=== PATIENT | female | born 1940 | race Caucasian/White ===

== ENCOUNTER 2025-02-25 12:13 | Inpatient (IN) | payer MEDICARE, OTHER ==
[~2025-02-25] VITALS: Ht 165.1 cm; Wt 72.3 kg
[2025-02-25] MEDS ORDERED: ACETAMINOPHEN ES 500 MG TABLET ONE (13:17)
[2025-02-25] MEDS: ACETAMINOPHEN ES 500 MG TABLET PO ONE (13:23)
[2025-02-25] MEDS ORDERED: MORPHINE SULFATE INJ 2 MG/ML DISP.SYRIN ONE (13:58)
[2025-02-25] MEDS: MORPHINE SULFATE INJ 2 MG/ML DISP.SYRIN IV ONE ×2 (14:01→16:04)
[2025-02-25] MEDS ORDERED: PROPOFOL 20 ML IV ONE (14:48)
[2025-02-25] MEDS ORDERED: RASA1TAB4 PO (14:57)
[2025-02-25] MEDS ORDERED: LEVO75TA99 PO (14:57)
[2025-02-25] MEDS ORDERED: EVOL140P3 SQ (14:57)
[2025-02-25] MEDS ORDERED: EZET10TA32 PO (14:57)
[2025-02-25] MEDS ORDERED: CARB1TAB21 PO (14:57)
[2025-02-25] MEDS ORDERED: ASPI-1420 PO (14:57)
[2025-02-25 14:59] LABS: BASOPHILS % (AUTO) 0.6 % (0.0-2.0); EOSINOPHILS % (AUTO) 0.2 % (0.0-6.0); HEMATOCRIT 39 % (33-45); HEMOGLOBIN 12.7 g/dL (11.5-14.8); LYMPHOCYTES # (AUTO) 1.2 K/uL (0.8-4.8); LYMPHOCYTES % (AUTO) 15.6 % (20.0-44.0); MEAN CORPUSCULAR HEMOGLOBIN 32 PG (26.0-33.0); MEAN CORPUSCULAR HGB CONC 33 g/dl (31.0-36.0); MEAN CORPUSCULAR VOLUME 97 fL (82-100); MONOCYTES # (AUTO) 0.4 K/uL (0.1-1.30); MONOCYTES % (AUTO) 5.3 % (2.0-12.0); NEUTROPHILS # (AUTO) 5.9 K/uL (1.8-8.9); NEUTROPHILS % (AUTO) 78.3 % (43.0-81.0); PLATELET COUNT (AUTO) 392 K/uL (150-450); RED BLOOD CELL COUNT(AUTO) 3.97 MIL/uL (4.0-5.2); RED CELL DISTRIBUTION WIDTH 15.7 % (11.5-15.0); WHITE BLOOD COUNT (AUTO) 7.5 K/uL (4.3-11.0)
[2025-02-25] MEDS ORDERED: PROPOFOL 200 MG/20 ML VIAL IV ONE (15:00)
[2025-02-25 15:13] LABS: CALCIUM, SERUM 9.1 mg/dL (8.5-10.1); CREATININE 0.6 mg/dL (0.6-1.3); POTASSIUM 3.5 mmol/L (3.5-5.1)
[2025-02-25 15:20] LABS: INR 0.98 (0.91-1.10); PROTHROMBIN TIME 10.4 SECS (9.2-11.1)
[2025-02-25] MEDS: PROPOFOL 200 MG/20 ML VIAL IV ONE (15:57)
[2025-02-25] MEDS: KETAMINE HCL (500MG/10ML) 50 MG/ML VIAL IV ONE (15:58)
[2025-02-25] MEDS ORDERED: MORPHINE SULFATE INJ 4 MG/ML DISP.SYRIN ONE (16:02)
[2025-02-25 20:00] VITALS: O2SAT 98
[2025-02-25] MEDS ORDERED: Z GUARD REMEDY 4 OZ OINT TP PRN (21:00)
[2025-02-25] MEDS ORDERED: ONDANSETRON HCL/PF 4 MG/2 ML VIAL IVP PRN (21:00)
[2025-02-25] MEDS: ENOXAPARIN SODIUM 40 MG/0.4 ML DISP.SYRIN SQ SCH (22:03)
[2025-02-25] MEDS: MORPHINE SULFATE INJ 2 MG/ML DISP.SYRIN IV PRN (22:10)
[2025-02-26] MEDS: HYDROCODONE/APAP 5/325MG TABLET PO PRN (00:07)
[2025-02-26] MEDS: MORPHINE SULFATE INJ 2 MG/ML DISP.SYRIN IV PRN (05:46)
[2025-02-26 06:35] LABS: CALCIUM, SERUM 8.4 mg/dL (8.5-10.1); CREATININE 0.5 mg/dL (0.6-1.3); MAGNESIUM 2.1 mg/dL (1.8-2.4); PHOSPHORUS 3.4 mg/dL (2.5-4.9); POTASSIUM 3.5 mmol/L (3.5-5.1)
[2025-02-26 06:53] LABS: BASOPHILS % (AUTO) 0.4 % (0.0-2.0); EOSINOPHILS # (AUTO) 0.1 K/uL (0.0-0.7); EOSINOPHILS % (AUTO) 0.7 % (0.0-6.0); HEMATOCRIT 33 % (33-45); LYMPHOCYTES % (AUTO) 26.8 % (20.0-44.0); MEAN CORPUSCULAR HEMOGLOBIN 32 PG (26.0-33.0); MEAN CORPUSCULAR HGB CONC 33 g/dl (31.0-36.0); MEAN CORPUSCULAR VOLUME 97 fL (82-100); MONOCYTES # (AUTO) 0.7 K/uL (0.1-1.30); MONOCYTES % (AUTO) 9.8 % (2.0-12.0); NEUTROPHILS # (AUTO) 4.7 K/uL (1.8-8.9); NEUTROPHILS % (AUTO) 62.3 % (43.0-81.0); PLATELET COUNT (AUTO) 340 K/uL (150-450); RED BLOOD CELL COUNT(AUTO) 3.39 MIL/uL (4.0-5.2); RED CELL DISTRIBUTION WIDTH 15.1 % (11.5-15.0); WHITE BLOOD COUNT (AUTO) 7.6 K/uL (4.3-11.0)
[2025-02-26 07:00] VITALS: BP 99/49; TEMP 97.3; O2SAT 93
[2025-02-26 07:30] VITALS: BP 103/58; TEMP 97.7; O2SAT 96
[2025-02-26] MEDS: PANTOPRAZOLE 40 MG TABLET.DR PO SCH (07:50)
[2025-02-26] MEDS: LEVOTHYROXINE SODIUM 75 MCG TABLET PO SCH (08:02)
[2025-02-26] MEDS: EZETIMIBE 10 MG TABLET PO SCH (08:02)
[2025-02-26] MEDS: CARBIDOPA/LEVODOPA 25/100 MG 1 UDTAB PO SCH (08:02)
[2025-02-26] MEDS ORDERED: ASPIRIN EC 81 MG TABLET.DR PO SCH (09:00)
[2025-02-26 16:00] VITALS: BP 110/58; TEMP 98.8; O2SAT 98
[2025-02-26 16:31] VITALS: BP 101/62; TEMP 98.1; O2SAT 99
[2025-02-26 20:00] VITALS: BP 102/61; TEMP 97.9; O2SAT 96
[2025-02-26] MEDS: ACETAMINOPHEN 325 MG TABLET PO PRN (23:26)
[2025-02-26] MEDS: MAGNESIUM HYDROXIDE 30 ML UDC PO PRN (23:54)
[2025-02-27 06:57] LABS: CALCIUM, SERUM 8.7 mg/dL (8.5-10.1); CREATININE 0.6 mg/dL (0.6-1.3); POTASSIUM 3.6 mmol/L (3.5-5.1)
[2025-02-27 07:12] LABS: BASOPHILS % (AUTO) 0.4 % (0.0-2.0); EOSINOPHILS # (AUTO) 0.1 K/uL (0.0-0.7); EOSINOPHILS % (AUTO) 0.7 % (0.0-6.0); HEMATOCRIT 33 % (33-45); HEMOGLOBIN 10.9 g/dL (11.5-14.8); LYMPHOCYTES # (AUTO) 2.1 K/uL (0.8-4.8); LYMPHOCYTES % (AUTO) 26.2 % (20.0-44.0); MEAN CORPUSCULAR HEMOGLOBIN 32 PG (26.0-33.0); MEAN CORPUSCULAR HGB CONC 33 g/dl (31.0-36.0); MEAN CORPUSCULAR VOLUME 96 fL (82-100); MONOCYTES # (AUTO) 0.9 K/uL (0.1-1.30); MONOCYTES % (AUTO) 11.4 % (2.0-12.0); NEUTROPHILS # (AUTO) 4.9 K/uL (1.8-8.9); NEUTROPHILS % (AUTO) 61.3 % (43.0-81.0); PLATELET COUNT (AUTO) 349 K/uL (150-450); RED BLOOD CELL COUNT(AUTO) 3.45 MIL/uL (4.0-5.2); RED CELL DISTRIBUTION WIDTH 15.5 % (11.5-15.0)
[2025-02-27 07:30] VITALS: BP 127/64; TEMP 98.2; O2SAT 100
[2025-02-27 16:00] VITALS: BP 104/51; TEMP 98.4; O2SAT 94
[2025-02-27 20:00] VITALS: BP 106/58; TEMP 98.2; O2SAT 96
[2025-02-28 08:00] VITALS: BP 162/69; TEMP 98.1; O2SAT 96
[2025-02-28] MEDS ORDERED: ENOX40DI SQ (15:15)
[2025-02-28 16:17] VITALS: BP 108/55; TEMP 98.1; O2SAT 96
== END 2025-02-28 17:52 | DRG 563 ==
LOC: ER 12:20 → MED 21:04
PROVIDERS: ADMIT Nurse Practitioner Family; ATTEND Internal Medicine
PROC: 0RSJXZZ Reposition Right Shoulder Joint, External Approach (ICD-10-PCS; principal; 2025-02-25)
DX: S42.211A Unspecified displaced fracture of surgical neck of right humerus, initial encounter for closed fracture (principal); E03.9 Hypothyroidism, unspecified; E78.5 Hyperlipidemia, unspecified; Z66 Do not resuscitate; Z98.890 Other specified postprocedural states; G20.A1 Parkinson's disease without dyskinesia, without mention of fluctuations; W19.XXXA Unspecified fall, initial encounter; Y92.009 Unspecified place in unspecified non-institutional (private) residence as the place of occurrence of the external cause; S43.014A Anterior dislocation of right humerus, initial encounter; R29.6 Repeated falls; Z79.01 Long term (current) use of anticoagulants; Z79.82 Long term (current) use of aspirin; Z79.890 Hormone replacement therapy; Z79.899 Other long term (current) drug therapy
CPT/HCPCS: 36415; 70450-TC; 72125-TC; 73030-TC; 73060-TC; 73200-TC; 80048-TC; 83735-TC; 84100-TC; 85025-TC; 85610-TC; 86850-TC; 97110-TC; 97112-TC; 97116-TC; 97530-TC; 97535-TC; G0378; J1650; J2270; J2704; J7030